=== PATIENT | male | born 1960 | race Caucasian/White ===

== ENCOUNTER 2019-12-28 15:43 | Inpatient (IN) | payer BC ==
--- NOTE | 2019-12-28 16:31 | HP ---
SUPERVISING PHYSICIAN: Ammon Quan M.D. CHIEF COMPLAINT: Shortness of breath, low oxygen saturation and fever. 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 He has felt fairly poorly since he was tested but over the last 24 hours he has gotten progressively short of breath with O2 saturations in the mid 80s. His temperature was up to 104 last night. He has taken Tylenol and Ibuprofen as well as Vitamin C and zinc, and his symptoms have worsened, especially over the last [address] Almonte at [facility] and after a discussion of his case he called me for direct admission to the hospital. The patient was admitted to the hospital for COVID-19. His initial vital signs in the hospital were a temperature of 100.7 with a heart rate of 83, blood pressure 164/89, respiratory rate 22 to 26. His oxygen saturation dropped to the mid 80s on room air with exertion. He is now at rest in the low 90s. Blood cultures were drawn and his lab studies were done. His WBCs are 4,500 with hemoglobin of 14.9 and hematocrit of 44, platelet count 214, neutrophils are 71%, lymphocytes are 18.4%. PTT is 31, fibrinogen is 380 and D-dimer is 135. Sodium 137, potassium 3.2, chloride 98, carbon dioxide 29, BUN 11, creatinine 0.92, ferritin 435.3 with an AST of 48, ALT of 84, LDH of 188. C reactive protein is 10.1, troponin 0.02. His chest x-ray is still pending. The patient was admitted in stable condition to the hospital. PAST MEDICAL HISTORY: 1. Hypertension. PAST SURGICAL HISTORY: None. OUTPATIENT MEDICATIONS: 1. Amlodipine. 2. Metoprolol. 3. Zestoretic. ALLERGIES: NO KNOWN DRUG ALLERGIES. 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 He denies tobacco or illicit drug use. He does drink alcohol on a social basis. REVIEW OF SYSTEMS: GENERAL: Positive for fatigue and fever. Negative for weight changes. HEENT: Negative for sinus symptoms, ear pain, vision changes or sore throat. RESPIRATORY: Positive for coughing, wheezing and shortness of breath. CARDIAC: Negative for chest pain, palpitations or tachycardia. GASTROINTESTINAL: Negative for nausea, vomiting, diarrhea or constipation. GENITOURINARY: Negative for hematuria, dysuria or polyuria. SKIN: Negative for lesions or rashes. NEUROLOGIC: Positive for weakness. Negative for headaches or seizures. PHYSICAL EXAMINATION: VITAL SIGNS: Per the History of Present Illness. GENERAL: This is a 59 year-old male patient who was sitting up in his hospital bed. He is in mild respiratory distress. HEENT: Normocephalic, atraumatic. Pupils are equal and reactive. Oropharynx is clear. NECK: Supple without mass. RESPIRATORY: Diminished breath sounds throughout with scattered rhonchi. No crackles or wheezing. CHEST: There is equal rise and fall of the chest with inspiration and expiration. CARDIOVASCULAR: Regular rate and rhythm. GASTROINTESTINAL: Abdomen is soft, nondistended, nontender. Bowel sounds are positive. EXTREMITIES: No cyanosis, clubbing or edema. NEUROLOGIC: Awake, alert and oriented times three. Cranial nerves II-XII are grossly intact as tested. LABORATORY STUDIES: As per the History of Present Illness. Chest x-ray is pending. ASSESSMENT: 1. COVID-19 positive times 9 days with progressively worsening shortness of breath and low O2 saturations. His WBCs are 4,500 with lymphocytes of 18.4%. AST is 48, ALT 84, ferritin 435.3, LDH 188, CRP is 10.1. His respiratory rate is 22 to 26, O2 saturations dropped to the mid 80s and his temperature at home was 104 degrees. 2. Hypertension. PLAN: The patient has been admitted to the hospital. He is on our pneumonia and COVID-19 guidelines. He will have aggressive pulmonary hygiene including incentive spirometry and I have encouraged him to self prone. We will start him on Rocephin and azithromycin as well as Decadron 6 mg IV. I will give him judicious fluids overnight and will recheck his lab, including his COVID lab tomorrow. Will also do a chest x-ray in the morning. He will have Lovenox 40 mg for deep venous thrombosis prophylaxis and a proton pump inhibitor for ulcer prophylaxis. His home medications will be restarted as soon as they are verified. We will continue to follow him closely and treat as needed. [facility][id number] [facility]
[2019-12-28] MEDS ORDERED: LEVALBUTEROL NEBS 1.25 MG/3 ML VIAL NEB ONE (16:34)
[2019-12-28] MEDS ORDERED: LEVALBUTEROL NEBS 1.25 MG/3 ML VIAL INH PRN (16:42)
[2019-12-28] MEDS ORDERED: ONDANSETRON INJ 4 MG/2 ML VIAL IV PRN (16:42)
[2019-12-28] MEDS ORDERED: SODIUM CHLORIDE 0.9% (FLUSH) 10 ML SYG IV PRN (16:42)
[2019-12-28] MEDS: IV SET AND CAP CHANGE INJ INJ SCH (17:20)
[2019-12-28] MEDS: DEXAMETHASONE INJ 4 MG/ML VIAL IV SCH (17:34)
[2019-12-28] MEDS: ACETAMINOPHEN 325 MG TAB PO PRN (17:35)
[2019-12-28] MEDS: cefTRIAXone SODIUM 1 GM in SODIUM CHL 0.9% 50ML MIN-BAG+ 50 ML IVPB SCH (17:36)
[2019-12-28] MEDS ORDERED: POTASSIUM CHLORIDE 20 MEQ TAB PO ONE (17:43)
[2019-12-28] MEDS: AZITHROMYCIN IV 500 MG in SODIUM CHLORIDE 0.9% 250ML 250 ML IVPB SCH (18:05)
[2019-12-28] MEDS ORDERED: KCL 20 MEQ/NS 1,000 ML IVS ONE (18:07)
[2019-12-28] MEDS: KCL 20 MEQ/NS 1,000 ML IVS PRN (18:07)
[2019-12-28] MEDS: LEVALBUTEROL NEBS 1.25 MG/3 ML VIAL INH SCH (20:10)
--- NOTE | 2019-12-28 21:05 | RAD ---
EXAM DESCRIPTION: Chest, x-ray 1 View CLINICAL HISTORY: covid COMPARISON: None FINDINGS: Cardiac silhouette is within normal limits. There is no focal parenchymal or pleural disease. There is no acute osseous process visualized. There is elevation of the left hemidiaphragm. EKG leads project over the chest. IMPRESSION: No evidence of acute cardiopulmonary disease. Electronically signed by: Jorge Arriaza MD 12/28/2019 9:04 PM CDT
[2019-12-28] MEDS: ENOXAPARIN SODIUM 40 MG/0.4 ML SYG SUBCU SCH (22:03)
[2019-12-28] MEDS: SODIUM CHLORIDE 0.9% (FLUSH) 10 ML SYG IV SCH (22:03)
[2019-12-29] MEDS: KCL 20 MEQ/NS 1,000 ML IVS PRN (03:13)
[2019-12-29] MEDS ORDERED: KCL 20 MEQ/NS 1,000 ML IVS ONE (03:13)
[2019-12-29] MEDS: PANTOPRAZOLE SODIUM IV 40 MG VIAL IV SCH (05:59)
--- NOTE | 2019-12-29 07:36 | RAD ---
EXAM DESCRIPTION: Chest,1 View CLINICAL HISTORY: 59 years Male, COVID COMPARISON: 12/28/2019 TECHNIQUE: Single AP chest radiograph. FINDINGS: Decreased/resolved left basilar lung opacity. No new airspace opacities. No pneumothorax or pleural effusion. Normal cardiomediastinal contour. Normal osseous structures. IMPRESSION: 1. No residual discernible active cardiopulmonary process. Please note that chest radiographs have low sensitivity for detection of subtle groundglass opacities. Electronically signed by: Bogdan Turner MD 12/29/2019 7:35 AM CDT
[2019-12-29] MEDS: DEXAMETHASONE INJ 4 MG/ML VIAL IV SCH (07:43)
[2019-12-29] MEDS: SODIUM CHLORIDE 0.9% (FLUSH) 10 ML SYG IV SCH ×2 (07:43→20:23)
[2019-12-29] MEDS: LEVALBUTEROL NEBS 1.25 MG/3 ML VIAL INH SCH ×4 (08:18→20:00)
[2019-12-29] MEDS ORDERED: SODIUM CHLORIDE 0.9% (FLUSH) 10 ML SYG IV ONE (08:22)
[2019-12-29] MEDS: BIFIDOBACTERIUM INFANTIS 4 MG CAP PO SCH (11:07)
[2019-12-29] MEDS: LISINOPRIL 10 MG TAB PO SCH (11:07)
[2019-12-29] MEDS: hydroCHLOROthiazide 12.5 MG CAP PO SCH (11:08)
--- NOTE | 2019-12-29 15:09 | PN ---
SUPERVISING PHYSICIAN: Ammon Quan M.D. DATE: 12/29/19 SUBJECTIVE: The patient is still a little bit short of breath and has shown some desaturations during the night, and actually when he comes off O2. He has not had any chest pains. He has had a little bit of nausea but no vomiting and a little bit of diarrhea. OBJECTIVE: VITAL SIGNS: Temperature 98.2, pulse 85, blood pressure 124/76, respirations 16, satting 95% on 1 liter nasal cannula, O2 saturations in the mid 80s on room air. GENERAL: The patient is resting comfortably. He has been noted to barely eat lunch. CHEST: Sounds remain diminished with some continuing rhonchi bilaterally but no obvious wheezing or rales. HEART: Regular rate and rhythm. ABDOMEN: Soft, non-tender. Positive bowel sounds. EXTREMITIES: Without any edema. NEUROLOGIC: He is alert and oriented times three. LABORATORY STUDIES: White count 2,900, hemoglobin 14, hematocrit 41.0, platelet count 197,000. Differential shows increased number of lymphocytes. Coagulation studies showed D-dimer of less than 131 compared to 135 on admission. Chemistries today show normal electrolytes with potassium normalizing to 3.7, creatinine is at 0.73. C reactive protein remains elevated at 2.1. MICROBIOLOGY: Blood cultures remain negative. RADIOLOGY: Chest x-ray, single view chest per radiology interpretation shows no residual discernible active cardiopulmonary process. ASSESSMENT: 1. COVID-19 infection with hypoxia on room air and trending elevation of inflammatory markers. 2. Pneumonitis secondary to #1 requiring ongoing bronchial hygiene. 3. Hypertension, stable. PLAN: The patient will be continued on current COVID-19 guidelines. He does remain on antibiotics with Rocephin and azithromycin. He is on Decadron daily 6 mg as well as Lovenox 40 mg and Protonix. Will monitor his laboratory studies in the morning. I anticipate probably another 24 to 48 hours before he will be able to go home, at least until he is no longer requiring oxygen or shows minimal desaturations and a good trending of his inflammatory markers to baseline levels compared to admission. Until we can continue outpatient management will continue monitor as needed. #[id number] [facility]
[2019-12-29] MEDS: cefTRIAXone SODIUM 1 GM in SODIUM CHL 0.9% 50ML MIN-BAG+ 50 ML IVPB SCH ×2 (15:50→17:00)
[2019-12-29] MEDS: AZITHROMYCIN IV 500 MG in SODIUM CHLORIDE 0.9% 250ML 250 ML IVPB SCH (16:03)
[2019-12-29] MEDS: ENOXAPARIN SODIUM 40 MG/0.4 ML SYG SUBCU SCH (20:23)
[2019-12-29] MEDS: METOPROLOL SUCCINATE XL 100 MG TAB PO SCH (20:24)
[2019-12-29] MEDS: amLODIPine BESYLATE 5 MG TAB PO SCH (20:24)
--- NOTE | 2019-12-29 23:55 | CT ---
PROCEDURE: CT Chest w/o Contrast CLINICAL HISTORY: 59 years Male COVID-19 w/ pneumonia and hypoxia TECHNIQUE: Contiguous axial images obtained through the chest without IV contrast administration. Coronal and sagittal reformatted images provided. This CT exam was performed according to our departmental dose-optimization program, which includes one or more of the following dose reduction techniques: automated exposure control, adjustment of the mA and/or kV according to patient size, and/or use of iterative reconstruction technique. COMPARISON: No prior exams provided for comparison. FINDINGS: There are scattered ground glass airspace opacities throughout both lungs. Left basilar atelectasis. Trace bilateral pleural effusions. No pneumothorax. The central airways are patent. The heart is normal in size without pericardial effusion. The aorta and central pulmonary vasculature are normal in caliber. No lymphadenopathy in the chest. Elevation of the left hemidiaphragm. Steatosis of the liver. Mild splenomegaly. Chronic degenerative changes in the spine. IMPRESSION: Scattered groundglass airspace opacities throughout both lungs, findings which are commonly seen in Covid 19 pneumonia. Other processes such as influenza pneumonia and organizing pneumonia, as can be seen with drug toxicity and connective tissue disease, can cause similar imaging pattern. [PneTyp] Trace bilateral pleural effusions. Steatosis of the liver. Mild splenomegaly. Electronically signed by: Ariana Erickson MD 12/29/2019 11:54 PM CDT
[2019-12-30] MEDS: ACETAMINOPHEN 325 MG TAB PO PRN ×2 (04:05→20:55)
[2019-12-30] MEDS: PANTOPRAZOLE SODIUM IV 40 MG VIAL IV SCH (06:04)
[2019-12-30] MEDS: LEVALBUTEROL NEBS 1.25 MG/3 ML VIAL INH SCH (09:11)
[2019-12-30] MEDS: BIFIDOBACTERIUM INFANTIS 4 MG CAP PO SCH (09:15)
[2019-12-30] MEDS: hydroCHLOROthiazide 12.5 MG CAP PO SCH (09:15)
[2019-12-30] MEDS: DEXAMETHASONE INJ 10 MG/ML VIAL IV SCH (09:15)
[2019-12-30] MEDS: LISINOPRIL 10 MG TAB PO SCH (09:15)
[2019-12-30] MEDS: SODIUM CHLORIDE 0.9% (FLUSH) 10 ML SYG IV SCH ×2 (09:16→20:41)
[2019-12-30] MEDS: LEVALBUTEROL NEBS 0.63 MG/3 ML VIAL NEB SCH ×4 (09:50→20:00)
[2019-12-30] MEDS: cefTRIAXone SODIUM 1 GM in SODIUM CHL 0.9% 50ML MIN-BAG+ 50 ML IVPB SCH (16:22)
[2019-12-30] MEDS: AZITHROMYCIN IV 500 MG in SODIUM CHLORIDE 0.9% 250ML 250 ML IVPB SCH (18:15)
[2019-12-30] MEDS: BUDESONIDE NEBS 0.5 MG/2 ML INH NEB SCH (20:00)
[2019-12-30] MEDS: amLODIPine BESYLATE 5 MG TAB PO SCH (20:40)
[2019-12-30] MEDS: METOPROLOL SUCCINATE XL 100 MG TAB PO SCH (20:40)
[2019-12-30] MEDS: ENOXAPARIN SODIUM 40 MG/0.4 ML SYG SUBCU SCH (20:40)
--- NOTE | 2019-12-30 20:42 | PN ---
SUPERVISING PHYSICIAN: Ammon Quan M.D. DATE: 12/30/19 SUBJECTIVE: The patient is still having some episodes of desaturation requiring oxygen. He still feels tired and exhausted, a little bit short of breath with exertion. No chest pain, nausea or vomiting. He says his diarrhea has essentially stopped. OBJECTIVE: VITAL SIGNS: O2 saturations remain anywhere from 91 to 95% on 1 liter nasal cannula with exertion and off on room air he is satting in the high 80s to 89. Blood pressure shows to be at 155/75, heart rate 78, temperature 98.8, respirations 18. LABORATORY STUDIES: White count now has normalized to 6,900, starting to show a little bit of a left shift, hemoglobin 12.5, hematocrit 36.3. D-dimer is less than 131. C reactive protein is down now to 4.4 from 10.1 yesterday. Troponin remains within normal limits at 0.3. Chemistry shows just some mild hypokalemia at 3.3 on potassium, otherwise electrolytes are within normal limits. Liver functions remain within normal limits. LDH now has normalized at 142, CK is at 155. MICROBIOLOGY: Blood cultures remain negative at 48 hours. RADIOLOGY: CT of the chest last night per radiology interpretation without contrast shows scattered ground glass airspace opacities throughout both lungs. Please see that full detailed report. ASSESSMENT: 1. COVID-19 pneumonia with continued hypoxia on room air showing slow trend of normalizing inflammatory markers. 2. Pneumonitis secondary to #1, improving with strong bronchial hygiene. 3. Hypertension, stable. PLAN: Will continue with current treatment at this point with antibiotics of Rocephin, azithromycin, Decadron and Levaquin, Lovenox and Protonix. Will follow his labs. Will hopefully be able to discharge him either tomorrow or Thursday. Will continue to titrate him off of oxygen. I did discuss with him that he may need to go home on oxygen which he understands this and would like to try to air [facility] if possible because he does not have any luck with [facility]. Until we can transition back to outpatient management will continue to monitor and treat as needed. #[id number] [facility]
[2019-12-31] MEDS: PANTOPRAZOLE SODIUM IV 40 MG VIAL IV SCH (06:50)
[2019-12-31] MEDS: LEVALBUTEROL NEBS 0.63 MG/3 ML VIAL NEB SCH ×4 (08:35→20:10)
[2019-12-31] MEDS: BUDESONIDE NEBS 0.5 MG/2 ML INH NEB SCH ×2 (09:00→20:10)
[2019-12-31] MEDS: LISINOPRIL 10 MG TAB PO SCH (09:02)
[2019-12-31] MEDS: hydroCHLOROthiazide 12.5 MG CAP PO SCH (09:02)
[2019-12-31] MEDS: DEXAMETHASONE INJ 10 MG/ML VIAL IV SCH (09:02)
[2019-12-31] MEDS: BIFIDOBACTERIUM INFANTIS 4 MG CAP PO SCH (09:02)
[2019-12-31] MEDS: SODIUM CHLORIDE 0.9% (FLUSH) 10 ML SYG IV SCH ×2 (09:03→20:39)
[2019-12-31] MEDS: ACETAMINOPHEN 325 MG TAB PO PRN ×2 (09:43→20:39)
[2019-12-31] MEDS: cefTRIAXone SODIUM 1 GM in SODIUM CHL 0.9% 50ML MIN-BAG+ 50 ML IVPB SCH (17:20)
[2019-12-31] MEDS: IV SET AND CAP CHANGE INJ INJ SCH (17:21)
[2019-12-31] MEDS: AZITHROMYCIN IV 500 MG in SODIUM CHLORIDE 0.9% 250ML 250 ML IVPB SCH (17:57)
[2019-12-31] MEDS: amLODIPine BESYLATE 5 MG TAB PO SCH (20:39)
[2019-12-31] MEDS: METOPROLOL SUCCINATE XL 100 MG TAB PO SCH (20:39)
[2019-12-31] MEDS: ENOXAPARIN SODIUM 40 MG/0.4 ML SYG SUBCU SCH (20:39)
[2020-01-01] MEDS: PANTOPRAZOLE SODIUM IV 40 MG VIAL IV SCH (06:16)
[2020-01-01] MEDS: hydroCHLOROthiazide 12.5 MG CAP PO SCH (07:51)
[2020-01-01] MEDS: DEXAMETHASONE INJ 10 MG/ML VIAL IV SCH (07:52)
[2020-01-01] MEDS: LISINOPRIL 10 MG TAB PO SCH (07:52)
[2020-01-01] MEDS: BIFIDOBACTERIUM INFANTIS 4 MG CAP PO SCH (07:52)
[2020-01-01] MEDS: SODIUM CHLORIDE 0.9% (FLUSH) 10 ML SYG IV SCH (07:52)
[2020-01-01] MEDS: BUDESONIDE NEBS 0.5 MG/2 ML INH NEB SCH (08:15)
[2020-01-01] MEDS: LEVALBUTEROL NEBS 0.63 MG/3 ML VIAL NEB SCH ×2 (08:15→12:36)
[2020-01-01] MEDS ORDERED: POTASSIUM CHLORIDE 20 MEQ TAB PO ONE (10:32)
[2020-01-01] MEDS ORDERED: CEFDINIR 300 MG CAP PO ONE (10:52)
[2020-01-01] MEDS ORDERED: AZITHROMYCIN 250 MG TAB PO ONE (10:52)
[2020-01-01 10:57] VITALS: O2SAT 95
--- NOTE | 2020-01-01 11:51 | RAD ---
EXAM: Chest,1 View CLINICAL INDICATION: COVID-19 COMPARISON: 12/29/2019 FINDINGS: A single view of the chest was obtained which is limited by poor inspiration. The heart size is normal. The pulmonary vascularity is prominent which is likely an artifact of poor inspiration. There is no obvious infiltrate, consolidation, pneumothorax or pleural effusion. IMPRESSION: Limited, grossly negative single view of the chest. Electronically signed by: Bogdan Jenkins MD 01/01/2020 11:50 AM CDT
[2020-01-01 14:15] VITALS: BP 142/78; TEMP 98.6
--- NOTE | 2020-01-01 16:17 | PN ---
SUPERVISING PHYSICIAN: Ammon Quan M.D. DATE: 12/31/19 SUBJECTIVE: The patient is lying in bed asleep. He awakens easily. He has tried to discontinue his oxygen multiple times but gets very short of breath with any exertion. He is holding in the lower 90s at 1 liter per minute in nasal cannula. Other than that, he has no chest pain, no nausea or vomiting. He does complain of being extremely weak. OBJECTIVE: VITAL SIGNS: Temperature 97.7, heart rate 98, blood pressure 157/87, respiratory rate 20, oxygen saturation 90% on 1 liter nasal cannula. RESPIRATORY: Diminished breath sounds throughout. CARDIAC: Regular rate and rhythm. GI: Abdomen soft, nondistended, non-tender. Bowel sounds are positive. NEUROLOGIC: He is awake, alert, and oriented x3. LABORATORY: WBC 5, 200 with hemoglobin 13.1 and hematocrit 38.1. He does have a left shift on his differential. Electrolytes are basically within normal limits. C-reactive protein is 2.3. Preliminary blood cultures show no growth. All other labs and films have been reviewed via the EMR. ASSESSMENT: 1. COVID-19 pneumonia with continued hypoxia on room air showing slow trend of normalizing inflammatory markers. 2. Pneumonitis secondary to #1, improving with strong bronchial hygiene and oxygen. 3. Hypertension, stable. PLAN: Will continue present supportive care and hope for discharge tomorrow. I will repeat his lab as well as his inflammatory markers tomorrow along with a chest x-ray. Most likely, he will need to go home with oxygen as he had a desaturation on Thursday in the mid 80s when ambulating in his room. He does come back up to 90 and 92% on 1 liter nasal cannula. He will also need to go home on cephalosporin, azithromycin, Decadron and Eliquis. We encouraged good pulmonary hygiene. We will continue to monitor closely and follow as needed. #[id number] [facility]
--- NOTE | 2020-01-01 18:42 | DS ---
SUPERVISING PHYSICIAN: Ammon Quan M.D. DISCHARGE DIAGNOSIS: 1. COVID-19 pneumonia with continued hypoxia on room air showing slow trend of normalizing inflammatory markers. 2. Pneumonitis secondary to #1, improving with strong bronchial hygiene and oxygen. 3. Hypertension, stable. 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 He tested positive for COVID-19. He has felt fairly poorly since he was tested but on the previous 24 hours prior to his admission, he had progressive shortness of breath with O2 saturations in the mid 80s. His temperature had gone up to 104. He had taken Tylenol and Ibuprofen as well as Vitamin C and zinc, and his symptoms have actually worsened, especially over the prior 24 hours before admission. He called Dr. Almonte at [facility] and after a discussion of his case, Dr. Almonte called me for direct admission to the hospital. The patient was admitted to the hospital for COVID-19. His initial vital signs in the hospital were a temperature of 100.7 with a heart rate of 83, blood pressure 164/89, respiratory rate 22 to 26. His oxygen saturations dropped to the mid 80s on room air with exertion. At rest initially his O2 saturations were in the low 90s. Blood cultures were drawn and lab studies were done. His WBCs were 4,500 with hemoglobin of 14.9 and hematocrit of 44, platelet count 214, neutrophils are 71%, lymphocytes are 18.4%. PTT is 31, fibrinogen is 380 and D-dimer is 135. Sodium 137, potassium 3.2, chloride 98, carbon dioxide 29, BUN 11, creatinine 0.92, ferritin 435.3 with an AST of 48, ALT of 84, LDH of 188. C reactive protein was 10.1, troponin 0.02. The patient was admitted in stable condition to the hospital. HOSPITAL COURSE: He was placed on the pneumonia guidelines as well as the COVID-19 guidelines. He had aggressive pulmonary hygiene including incentive spirometry. He was encouraged to self prone. He was started on Rocephin and azithromycin as well as Decadron 6 mg IV daily. He was given Lovenox and judicious fluids with close follow on his labs. He was also on Protonix for ulcer prophylaxis. His home medications were restarted. He progressively improved over the next several days, although there were some ups and downs on his COVID labs. He did have difficulty weaning off the oxygen and he actually desatted to the mid 80s when he was off oxygen in his room. That continued through this morning and we were unable to wean him completely off his oxygen. He has been requiring 1 liter of oxygen per minute to maintain his saturations in the low 90s. Due to his O2 saturations being low, oxygen was ordered. He has progressively improved and he will be discharged home today in stable condition with oxygen at 1 liter per minute as needed. LABORATORY: WBCs started at 4,500 and went down as low at 2,900 and are now stable at 5,200. His hemoglobin is stable at 13.1 and hematocrit of 38.1. He continued to have a left shift on differential. His platelet count was within normal limits. He did have lymphopenia with his lymphocytes being 8.7%. His D- dimer remains stable at 135 down to less than 131. Fibrinogen was 380 and his PTT was 31.6. He initially was hypoxic on his blood gas with a pO2 of 63. Electrolytes for the most part were within normal limits. He did have several days of potassium that dropped to 3.3 that required supplementation. Ferritin was 435. AST was 48 on admission and went down to 29 and today is 51. ALT was as high as 84 and went down to 55 and is now 74. Alkaline phosphatase was within normal limits. C reactive protein was as high as 10.1 and 4.4, 2.3 and today it is 1. Urinalysis is unremarkable. Preliminary blood cultures show no growth after 4 days. Initial chest x-ray showed no evidence of acute cardiopulmonary disease. He had a chest CT that showed scattered ground glass airspace opacities throughout both lungs, finding which are commonly seen ini COVID-19 pneumonia. Other processes such as Influenza pneumonia and organizing pneumonia can be seen with drug toxicity and connective tissue disease. There is a trace of bilateral pleural effusions with steatosis of the liver and mild splenomegaly. His final chest x- ray showed limited grossly negative single view of the chest. He will be discharged home today in stable condition. DISCHARGE PLAN: The patient will be discharged home in stable condition. He is to resume his previous diet and increase his activity as tolerated. He is to followup with his primary care physician within 1 week. At that time it would be beneficial to get a chest x-ray as well as a CMP and magnesium, and a CBC. In addition to his routine medications, he has been discharged on Eliquis, azithromycin, Pulmicort, Cefdinir, Dexamethasone and Xopenex. He is to return to the hospital or followup with his primary care physician for any problems or complications. DISCHARGE MEDICATIONS: 1. Metoprolol. 2. Amlodipine. 3. Zestoretic. 4. Zofran. 5. Eliquis. 6. Azithromycin. 7. Align. 8. Budesonide. 9. Cefdinir. 10. Dexamethasone. 11. Xopenex. #[id number] [facility]
== END 2020-01-01 13:50 | disposition home or self-care (01) | DRG 177 ==
LOC: MS 15:43
PROVIDERS: ADMIT Nurse Practitioner Acute Care; ATTEND Nurse Practitioner Acute Care
DX: U07.1 COVID-19 (principal); J12.89 Other viral pneumonia; R09.02 Hypoxemia; I10 Essential (primary) hypertension; Z79.899 Other long term (current) drug therapy